=== PATIENT | female | born 1995 | race Caucasian/White ===

== ENCOUNTER 2020-07-29 09:19 | Emergency (ER) | payer OTHER ==
[~2020-07-29] VITALS: Ht 157.5 cm; Wt 83.9 kg
[2020-07-29] MEDS ORDERED: HYDROXYZINE HCL25 M2 PO (10:18)
[2020-07-29 10:25] VITALS: BP 132/88
== END 2020-07-29 10:26 | disposition home or self-care (01) ==
LOC: M.ERS 09:19
DX: F41.0 Panic disorder [episodic paroxysmal anxiety] (principal)